=== PATIENT | female | born 1970 | race African-American/Black ===

== ENCOUNTER 2018-03-22 05:18 | Day surgery (SDC) | payer OTHER ==
[2018-03-21 12:55] VITALS: BMI 25.1
[2018-03-22] MEDS ORDERED: DESFLURANE GAS 240 ML BOTTLE IH ONE (07:06)
[2018-03-22] MEDS ORDERED: fentaNYL CITRATE 250 MCG/5 ML VIAL ONE (07:13)
[2018-03-22] MEDS ORDERED: MIDAZOLAM HCL 2 MG/2 ML SINGLE DOSE VIAL ONE (07:14)
[2018-03-22] MEDS ORDERED: LIDOCAINE HCL/PF 2% SDV 5ML VIAL ONE (07:14)
[2018-03-22] MEDS ORDERED: SUCCINYLCHOLINE CHLORIDE 200 MG/10 ML VIAL ONE (07:14)
[2018-03-22] MEDS ORDERED: PROPOFOL 20 ML ONE (07:14)
[2018-03-22] MEDS ORDERED: DEXAMETHASONE SOD PHOSPHATE 4 MG/1 ML VIAL ONE (07:14)
[2018-03-22] MEDS ORDERED: ONDANSETRON 4 MG/2 ML VIAL IVPUSH PRN ×2 (07:16→08:33)
[2018-03-22] MEDS ORDERED: ROCURONIUM BROMIDE 50 MG/5 ML VIAL ONE (07:17)
[2018-03-22] MEDS ORDERED: LACTATED RINGERS SOLUTION 1,000 ML IV SCH (07:30)
--- NOTE | 2018-03-22 07:45 | HP ---
History & Physical Update - Physical Physical: No Change - Assessment Assessment: No Change - Plan Plan: No Change
[2018-03-22] MEDS ORDERED: oxyCODONE HCL 5 MG TABLET PO PRN (08:33)
[2018-03-22] MEDS ORDERED: IBUPROFEN 800 MG/8 ML IJ IVPB PRN (08:33)
[2018-03-22] MEDS ORDERED: IBUPROFEN 600 MG TABLET (FP) PO PRN (08:33)
[2018-03-22] MEDS ORDERED: ELECTROLYTE-148 SOLN 1,000 ML IV SCH (08:45)
[2018-03-22] MEDS ORDERED: IBUPROFEN 800 MG/8 ML IJ IVPB ONE (09:34)
[2018-03-22 16:08] VITALS: BP 126/78; PULSE 68; TEMP 97.8
--- NOTE | 2018-03-25 18:51 | PATH ---
Surgical Pathology Report Patient Name: TIBURCIO CARPIO [facility]. Rec. #: [id number] /Age/Gender: 1970 (Age: 47) / F Account: [id number] Location: [facility] SURGICAL Taken: 03/22/2018 Received: 03/22/2018 Reported: 03/25/2018 Physicians: Vitaly Reyes M.D. Specimen(s) Received ENDOMETRIAL CURETTINGS Clinical History Menorrhagia, fibroid polyp Final Diagnosis ENDOMETRIAL CURETTINGS: ENDOMETRIAL POLYP. SEPARATE SMOOTH MUSCLE BUNDLES. SEPARATE SECRETORY TYPE ENDOMETRIUM. Electronically Signed Sangeeta Schwab M.D. Gross Description Received in formalin labeled "endometrial curettings," is a 2.5 x 2.4 x 0.3 cm aggregate of samuels soft tissue fragments. The formalin is filtered and the specimen is entirely submitted in one cassette. 03/22/201803/22/2018
--- NOTE | 2018-05-05 14:25 | OP ---
DATE OF OPERATION: 03/22/2018 PREOPERATIVE DIAGNOSES: Menometrorrhagia, endometrial polyp, and submucous fibroid uterus. POSTOPERATIVE DIAGNOSES: Menometrorrhagia, endometrial polyp, and submucous fibroid uterus. PROCEDURE: Hysteroscopy, dilation and curettage, and resection of the submucous fibroid uterus and endometrial polyp. SURGEON: Vitaly Reyes MD ANESTHESIA: General. ESTIMATED BLOOD LOSS: About 50 mL. OPERATION: The patient was taken to the operating room with adequate general anesthesia in dorsal lithotomy position. Examination under anesthesia revealed cervix to be clean. No gross lesions. Vagina had no lesions. Uterus was irregular and prominent. Adnexa, no masses were palpable. Then, with the weighted speculum in the vagina, the anterior lip of the cervix was grasped with a single-toothed tenaculum. The uterine cavity was sounded to 9 cm. Then, the cervix was slightly dilated. The Symphion hysteroscope resectoscope was introduced and then visualization of endocervical canal appeared to be normal. Endometrium was irregular and prominent. There was a submucous myoma that was seen at the fundal area of the uterus, which was approximately 2 to 3 cm. Both cornual regions were identified. No other abnormality was seen. Then, with the Symphion resectoscope, the fibroid was resected and suctioned and then there was also a 1 to 2 cm endometrial polyp at the right lateral wall of the uterus, which was also resected and then the endometrium was curetted. The patient tolerated the procedure well, left the OR in good condition. Joceline [id number]
== END 2018-03-22 12:30 | disposition home or self-care (01) ==
LOC: JASU-SURG 05:18
PROVIDERS: ATTEND Obstetrics & Gynecology
PROC: 0UDB7ZX Extraction of Endometrium, Via Natural or Artificial Opening, Diagnostic (ICD-10-PCS; 2018-03-22)
PROC: 0UJD8ZZ Inspection of Uterus and Cervix, Via Natural or Artificial Opening Endoscopic (ICD-10-PCS; 2018-03-22)
PROC: 0UB98ZZ Excision of Uterus, Via Natural or Artificial Opening Endoscopic (ICD-10-PCS; principal; 2018-03-22 07:30)
PROC: 0UB97ZX Excision of Uterus, Via Natural or Artificial Opening, Diagnostic (ICD-10-PCS; 2018-03-22 07:30)
DX: N92.1 Excessive and frequent menstruation with irregular cycle (principal); N84.0 Polyp of corpus uteri; D25.0 Submucous leiomyoma of uterus
CPT/HCPCS: 88305-TC; 94760